=== PATIENT | male | born 1995 | race Caucasian/White ===

== ENCOUNTER 2023-02-08 16:30 | Emergency (ER) | payer BC ==
[2023-02-08 16:43] VITALS: BP 123/79
[2023-02-08] MEDS ORDERED: KETOROLAC 15 MG/ML 1 ML VIAL IM STA (17:08)
[2023-02-08] MEDS ORDERED: Acetaminophen-Codeine 300-30mg TAB PO STA (17:08)
--- NOTE | 2023-02-08 17:08 | ED ---
Trauma HPI - General Chief Complaint: Trauma Stated Complaint: left foot/right wrist pain-fall Time Seen by Provider: 02/08/23 16:47 Source: patient, RN notes reviewed, old records reviewed Mode of arrival: wheelchair Limitations: no limitations - History of Present Illness Initial Comments: This is a 27-year-old male who presents to the emergency department for fall from a horse. Severe left ankle pain severe right wrist pain and patient did hit his head his nose and has bleeding from the nose. No other complaints no travel history no sick contacts. Patient does not take any medications prior to arrival had no loss of consciousness. No neck pain no back pain MD Complaint: fall, injury -: hour(s) Location: head, face Location - Extremities: Left: Ankle, Right: Wrist Severity scale (1-10): 10 Consistency: constant Context: mechanical fall Associated Symptoms: denies other symptoms Treatments Prior to Arrival: other (0) - Related Data Allergies Allergy/AdvReac Type Severity Reaction Status Date / Time No Known Allergies Allergy Verified 02/08/23 16:36 Review of Systems ROS Statement: Those systems with pertinent positive or pertinent negative responses have been documented in the HPI. ROS Other: All systems not noted in ROS Statement are negative. Past Medical History Past Medical History: No Reported History History of Any Multi-Drug Resistant Organisms: None Reported Past Surgical History: Ear Surgery Past Psychological History: No Psychological Hx Reported Smoking Status: Never smoker Past Alcohol Use History: Occasional Past Drug Use History: Cocaine General Exam Limitations: no limitations General appearance: alert, in no apparent distress, anxious Head exam: Present: atraumatic, normocephalic, normal inspection Eye exam: Present: normal appearance, PERRL, EOMI. Absent: scleral icterus, conjunctival injection, periorbital swelling ENT exam: Present: normal exam, mucous membranes moist Neck exam: Present: normal inspection. Absent: tenderness, meningismus, lymphadenopathy Respiratory exam: Present: normal lung sounds bilaterally. Absent: respiratory distress, wheezes, rales, rhonchi, stridor Cardiovascular Exam: Present: regular rate, normal rhythm, normal heart sounds. Absent: systolic murmur, diastolic murmur, rubs, gallop, clicks GI/Abdominal exam: Present: soft, normal bowel sounds. Absent: distended, tenderness, guarding, rebound, rigid Extremities exam: Present: normal inspection, full ROM, normal capillary refill, other (R wrist L ankle pain and swelling). Absent: tenderness, pedal edema, joint swelling, calf tenderness Back exam: Present: normal inspection Neurological exam: Present: alert, oriented X3, CN II-XII intact Psychiatric exam: Present: normal affect, normal mood Skin exam: Present: warm, dry, intact, normal color. Absent: rash Course Vital Signs 02/08/23 02/08/23 16:36 20:46 Temperature 98.5 F 98.1 F Pulse Rate 71 74 Respiratory 16 18 Rate Blood Pressure 123/79 123/79 O2 Sat by Pulse 98 99 Oximetry - Reevaluation(s) Reevaluation #1: 02/08/23 17:08 Medical records reviewed Reevaluation #2: 02/08/23 Patient symptoms are improving Reevaluation #3: 02/08/23 Patient informed results and questions answered Reevaluation #4: 02/08/23 17:08 Was pt. sent in by a medical professional or institution? @ -no Did you speak to anyone other than the patient for history? @ -no Did you review nursing and triage notes? @ -agree Were old charts reviewed? @ -yes Differential Diagnosis? @ -prior EKG interpreted by me (3pts min.)? @ -no X-rays interpreted by me (1pt min.)? @ -yes CT interpreted by me (1pt min.)? @ -yes U/S interpreted by me (1pt. min.)? @ -no What testing was considered but not performed? (CT, X-rays, U/S, labs)? Why? @ -no What meds were considered but not given? Why? @ -no Did you discuss the management of the patient with other professionals? @ -no Did you reconcile home meds? @ -no Was smoking cessation discussed for >3mins.? @ -no Was critical care preformed (if so, how long)? @ -no Were there social determinants of health that impacted care today? How? (Homelessness, low income, unemployed, alcoholism, drug addiction, transportation, low edu. Level, literacy, decrease access to med. care, nursing home, rehab)? @ -no Was there de-escalation of care discussed even if they declined? (Discuss DNR or withdrawal of care, Hospice)? @ -no What co-morbidities impacted this encounter? (DM, HTN, Smoking, COPD, CAD, Cancer, CVA, Hep., AIDS, mental health diagnosis, sleep apnea, morbid obesity)? @ -none Was patient admitted / discharged? @ -27 male to the ER today for fall from horse. Patient is found to have No nasal fracture with minimal bleeding from nose no septal hematoma patient does have wrist fracture and foot fracture traumatic. Patient is splinted. Patient will follow-up with orthopedics Discharged Undiagnosed new problem with uncertain prognosis? @ -no Drug Therapy requiring intensive monitoring for toxicity (Heparin, Nitro, Insulin, Cardizem)? @ -no Were any procedures done? @ -no Diagnosis/symptom? @ -Fall, Wrist Fracture Foot Fractue Acute, or Chronic, or Acute on Chronic? @ -acute Uncomplicated (without systemic symptoms) or Complicated (systemic symptoms)? @ -complicated Side effects of treatment? @ -no Exacerbation, Progression, or Severe Exacerbation] @ -no Poses a threat to life or bodily function? @ -no Procedures - Orthopedic Splinting/Casting Injury #1 Side: right Upper Extremity Injury Location: wrist Upper Extremity Immobilizer: wrist splint Injury #2 Side: left Lower Extremity Injury Location: foot Lower Extremity Immobilizer: posterior splint Other Orthopedic Equipment: crutches Medical Decision Making - Medical Decision Making 27 male to the ER today for fall from horse. Patient is found to have No nasal fracture with minimal bleeding from nose no septal hematoma patient does have wrist fracture and foot fracture traumatic. Patient is splinted. Patient will follow-up with orthopedics. We will splinted with injury, Lisfracn injury is suspected with falling off a horse with ankle in [facility] - Radiology Data Radiology results: report reviewed (X-ray wrist facial bones ankle-foot and CT ankle/foot does show wrist fracture and foot fracture), image reviewed Disposition Clinical Impression: Right wrist fracture, Left foot pain, Foot fracture, left Narrative: Suspect Lisfranc Fracture Disposition: HOME SELF-CARE Condition: Fair Instructions (If sedation given, give patient instructions): Wrist Fracture in Adults (ED), Swollen Joint (ED) Is patient prescribed a controlled substance at d/c from ED?: No Referrals: Minh Ryan DO [Doctor of Osteopathic Medicine] - 1-2 days Time of Disposition: 19:40
--- NOTE | 2023-02-08 17:32 | XR ---
EXAMINATION TYPE: XR wrist complete RT DATE OF EXAM: 02/08/2023 COMPARISON: None HISTORY: Fall, pain TECHNIQUE: 4 view right wrist FINDINGS: There is a longitudinal fracture of the distal radius. This extends into the medial radial articular surface. No additional fractures are evident. Joint spaces are preserved. Soft tissues are diffusely prominent. IMPRESSION 1. Longitudinal fracture distal metaphyseal radius with extension into the lateral radial articular surface
--- NOTE | 2023-02-08 17:34 | XR ---
EXAMINATION TYPE: XR nasal bone DATE OF EXAM: 02/08/2023 COMPARISON: None HISTORY: Pain, fall TECHNIQUE: 3 view nasal bones FINDINGS: Note is made to left septal deviation. The nasal bones appear intact. No displaced fracture s are identified. Maxillary spine appears intact. Soft tissues appear normal. IMPRESSION: 1. No acute displaced fracture is identified. Follow-up can be performed as clinically indicated.
--- NOTE | 2023-02-08 17:35 | XR ---
EXAMINATION TYPE: XR ankle complete LT DATE OF EXAM: 02/08/2023 COMPARISON: None HISTORY: Pain following fall TECHNIQUE: 3 view left ankle FINDINGS: Ankle mortise is intact. No acute fracture or dislocation is evident. Soft tissues are norm al. Follow-up studies can be performed 7-10 days from acute trauma for continued pain. IMPRESSION: 1. No acute osseous abnormality left ankle.
--- NOTE | 2023-02-08 19:06 | XR ---
EXAMINATION TYPE: XR foot complete LT DATE OF EXAM: 02/08/2023 COMPARISON: None HISTORY: Pain TECHNIQUE: 3 view left foot FINDINGS: No acute fractures or dislocations are evident. Soft tissues appear normal. Follow up exams can be performed 7-10 days from acute trauma for continued pain. IMPRESSION: 1. No acute osseous abnormality left foot.
[2023-02-08] MEDS ORDERED: IBUPROFEN 600 MG STARTER PACK 4 TAB BTL PO STA (20:13)
[2023-02-08] MEDS ORDERED: ACET/COD 300 MG/30 MG STARTER PACK 6 TAB BTL PO STA (20:13)
[2023-02-08] MEDS ORDERED: traMADol 50 MG STARTER PACK 3 TAB BTL PO STA (20:13)
[2023-02-08 20:47] VITALS: PULSE 74; RESP 18; TEMP 98.1
--- NOTE | 2023-02-08 21:20 | CT ---
EXAMINATION TYPE: CT foot LT wo con DATE OF EXAM: 02/08/2023 COMPARISON: HISTORY: Pt fell off a horse. Left foot pain. CT DLP: 163.8 mGycm Automated exposure control for dose reduction was used. Contrast: None Technique: Axial images 2 mm thick sections. Reconstructed images in the coronal and sagittal plane. Three-D reconstructed images performed on a separate computer by the technologist are reviewed. FINDINGS: There is an extremely subtle fracture at the inferior aspect proximal first metatarsal. Example image series 201 image 80, series 203 image 65, series 202 image 51. This fracture is nondisplaced. This d oes have intra-articular extension towards the joint space with the medial cuneiform. No additional fractures are evident. First and second metatarsal space appears normal. No additional metatarsal fractures are evident. Joint spaces appear preserved. IMPRESSION: 1. NONDISPLACED OCCULT FRACTURE INFERIOR PROXIMAL FIRST METATARSAL WITH EXTENSION INTO THE ARTICULAR SURFACE.
== END 2023-02-08 20:46 | disposition home or self-care (01) ==
LOC: EC 16:30
DX: S52.501A Unspecified fracture of the lower end of right radius, initial encounter for closed fracture (principal); S92.901A Unspecified fracture of right foot, initial encounter for closed fracture; V80.010A Animal-rider injured by fall from or being thrown from horse in noncollision accident, initial encounter; Y93.52 Activity, horseback riding
CPT/HCPCS: 70160; 73110; 73610; 73630; 73700; 99284; 96372; 29125; 29515; J1885